=== PATIENT | female | born 1985 | race Caucasian/White ===

== ENCOUNTER 2023-11-12 12:13 | Observation (INO) | payer MEDICARE, MEDICAID ==
[2023-11-12] MEDS ORDERED: Sodium Chloride 0.9% 10 ML Syringe FLUSH PRN (12:26)
[2023-11-12 12:38] LABS: BASOPHILS PERCENT AUTO 0.2 % (0.2-1.2); EOSINOPHILS ABSOLUTE AUTO 0.2 x10^3/uL (0.0-0.5); EOSINOPHILS PERCENT AUTO 2.2 % (0.0-4.0); HEMATOCRIT 41.6 % (33.0-47.0); HEMOGLOBIN 14.1 g/dL (12.0-16.0); IMMATURE GRAN ABSOLUTE AUTO 0.07 x10^3/uL (0.00-0.07); LYMPHOCYTES ABSOLUTE AUTO 1.4 x10^3/uL (1.0-4.8); MEAN CORPUSCULAR HEMOGLOBIN 31.5 pg (26.0-32.0); MEAN CORPUSCULAR HGB CONC 33.9 g/dL (32.0-36.0); MEAN CORPUSCULAR VOLUME 92.9 fL (78.0-93.0); MONOCYTES ABSOLUTE AUTO 0.5 x10^3/uL (0.0-0.8); MONOCYTES PERCENT AUTO 4.8 % (2.0-11.0); NEUTROPHILS PERCENT AUTO 78.1 % (50.0-80.0); PLATELET COUNT,PLT 353 x10^3/uL (130-400); RED BLOOD CELL COUNT 4.48 x10^6/uL (4.00-5.50); WHITE BLOOD CELL COUNT,WBC 10.2 x10^3/uL (4.0-10.0)
[2023-11-12] MEDS: Ketorolac 15 MG/ML SDV IVPUSH ONE (12:56)
[2023-11-12] MEDS: Lactated Ringers 1,000 ML IV ONE ×2 (12:56→19:45)
[2023-11-12] MEDS: Ondansetron 4 MG/2 ML SDV IVPUSH ONE (12:59)
[2023-11-12 13:00] LABS: A/G RATIO 1.08; ALANINE AMINOTRANSFERASE,ALT 23 U/L (14-59); ALBUMIN 4.1 g/dL (3.4-5.0); ALKALINE PHOSPHATASE 86 U/L (46-116); ANION GAP 15.9 mmol/L (5-15); ASPARTATE AMNIOTRANSFERASE,AST 12 U/L (15-37); BILIRUBIN TOTAL 0.5 mg/dL (0.2-1.0); BLOOD UREA NITROGEN,BUN 11 mg/dL (7-18); C-REACTIVE PROTEIN < 0.50 mg/dL (<=0.50); CALCIUM 9.3 mg/dL (8.5-10.1); CARBON DIOXIDE,CO2 26 mmol/L (21-32); CHLORIDE,CL 106 mmol/L (98-107); CREATININE 0.8 mg/dL (0.55-1.02); ESTIMATED GFR 98 mL/min (>=60); GLUCOSE RANDOM 133 mg/dL (70-99); POTASSIUM,K 3.9 mmol/L (3.5-5.1); PROTEIN TOTAL,TP 7.9 g/dL (6.4-8.2); SODIUM,NA 144 mmol/L (136-145)
[2023-11-12] MEDS: HYDROmorphone 0.5 MG/0.5 ML Syringe IVPUSH ONE ×3 (13:02→15:18)
[2023-11-12 13:04] LABS: LACTIC ACID 1.2 mmol/L (0.4-2.0)
[2023-11-12 14:40] LABS: APPEARANCE,URINE CLOUDY (CLEAR); BILIRUBIN,URINE NEGATIVE (NEGATIVE); COLOR,URINE DARK YELLOW (YELLOW); GLUCOSE,URINE NEGATIVE (NEGATIVE); KETONES,URINE TRACE mg/dL (NEGATIVE); LEUKOCYTE ESTERASE,URINE TRACE (NEGATIVE); NITRITE,URINE NEGATIVE (NEGATIVE); OCCULT BLOOD,URINE LARGE (NEGATIVE); PROTEIN,URINE 100 mg/dL (NEGATIVE); UROBILINOGEN,URINE 0.2 EU/dL (0.2)
[2023-11-12 14:56] LABS: BACTERIA,URINE FEW /HPF (NOT SEEN); RBC,URINE 75-100 /HPF (NOT SEEN); SQUAMOUS EPITHELIAL CELLS,UR FEW /HPF (NOT SEEN)
[2023-11-12] MEDS: Iopamidol 612 MG/ML 100 ML Bottle IVPUSH ONE (16:21)
[2023-11-12] MEDS: HYDROmorphone 1 MG/ML Syringe IVPUSH ONE ×3 (16:30→20:17)
[2023-11-12] MEDS: cefTRIAXone 1 GM Vial IVPUSH ONE (16:34)
[2023-11-12] MEDS: Tamsulosin 0.4 MG Cap.ER PO ONE (18:12)
[2023-11-12] MEDS ORDERED: Sennosides 8.6 MG Tab PO PRN (18:46)
[2023-11-12] MEDS: Ketorolac 15 MG/ML SDV IVPUSH SCH (19:56)
[2023-11-12] MEDS: Simvastatin 20 MG Tab PO SCH (19:59)
[2023-11-12] MEDS: Ondansetron 4 MG Tab.DIS PO PRN (20:46)
[2023-11-12] MEDS: HYDROmorphone 1 MG/ML Syringe IVPUSH PRN (21:17)
[2023-11-12] MEDS: Metoclopramide 10 MG Tab PO PRN (21:17)
[2023-11-13] MEDS ORDERED: Sennosides/Docusate Sodium 50-8.6 MG Tab PO PRN (08:28)
[2023-11-13 09:52] LABS: BASOPHILS PERCENT AUTO 0.3 % (0.2-1.2); EOSINOPHILS ABSOLUTE AUTO 0.3 x10^3/uL (0.0-0.5); EOSINOPHILS PERCENT AUTO 4.6 % (0.0-4.0); HEMATOCRIT 38.6 % (33.0-47.0); IMMATURE GRAN ABSOLUTE AUTO 0.01 x10^3/uL (0.00-0.07); LYMPHOCYTES PERCENT AUTO 34.5 % (25.0-50.0); MEAN CORPUSCULAR HEMOGLOBIN 31.4 pg (26.0-32.0); MEAN CORPUSCULAR HGB CONC 33.7 g/dL (32.0-36.0); MEAN CORPUSCULAR VOLUME 93.2 fL (78.0-93.0); MONOCYTES ABSOLUTE AUTO 0.5 x10^3/uL (0.0-0.8); MONOCYTES PERCENT AUTO 7.7 % (2.0-11.0); NEUTROPHILS ABSOLUTE AUTO 3.1 x10^3/uL (1.8-7.7); NEUTROPHILS PERCENT AUTO 52.7 % (50.0-80.0); PLATELET COUNT,PLT 275 x10^3/uL (130-400); RED BLOOD CELL COUNT 4.14 x10^6/uL (4.00-5.50); WHITE BLOOD CELL COUNT,WBC 5.9 x10^3/uL (4.0-10.0)
[2023-11-13 10:08] LABS: A/G RATIO 0.95; ALANINE AMINOTRANSFERASE,ALT 23 U/L (14-59); ALBUMIN 3.5 g/dL (3.4-5.0); ALKALINE PHOSPHATASE 75 U/L (46-116); ASPARTATE AMNIOTRANSFERASE,AST 14 U/L (15-37); BILIRUBIN TOTAL 0.7 mg/dL (0.2-1.0); BLOOD UREA NITROGEN,BUN 7 mg/dL (7-18); CALCIUM 9.1 mg/dL (8.5-10.1); CARBON DIOXIDE,CO2 27 mmol/L (21-32); CHLORIDE,CL 107 mmol/L (98-107); CREATININE 0.8 mg/dL (0.55-1.02); EST CRCL DRUG DOSING (CG) 95.45 mL/min; GLUCOSE RANDOM 91 mg/dL (70-99); POTASSIUM,K 3.4 mmol/L (3.5-5.1); PROTEIN TOTAL,TP 7.2 g/dL (6.4-8.2); SODIUM,NA 144 mmol/L (136-145)
[2023-11-13 10:11] LABS: ANION GAP 13.4 mmol/L (5-15); C-REACTIVE PROTEIN < 0.50 mg/dL (<=0.50); ESTIMATED GFR 98 mL/min (>=60); LACTIC ACID 0.7 mmol/L (0.4-2.0)
[2023-11-13] MEDS: Ferrous Sulfate 325 MG Tab PO SCH (10:32)
[2023-11-13] MEDS: Lactobacillus Rhamnosus GG (Probiotic) Cap PO SCH (10:32)
[2023-11-13] MEDS: Aspirin 325 MG Tab.EC PO SCH (10:32)
[2023-11-13] MEDS: Ascorbic Acid 500 MG Tab PO SCH (10:33)
[2023-11-13] MEDS ORDERED: cefTRIAXone 1 GM Vial IVPUSH SCH (16:00)
[2023-11-13] MEDS ORDERED: Tamsulosin 0.4 MG Cap.ER PO SCH (18:00)
[2023-11-13] MEDS ORDERED: PARoxetine 20 MG Tab PO SCH (21:00)
== END 2023-11-13 12:25 | disposition short-term general hospital (02) ==
LOC: VM.ED 12:13 → VM.MS 18:01
PROVIDERS: ADMIT Physician Assistant; ATTEND Physician Assistant
DX: N13.2 Hydronephrosis with renal and ureteral calculous obstruction (principal); N23 Unspecified renal colic
CPT/HCPCS: 36415; 74177; 80053; 81001; 81025; 83605; 85025; 86140; 87086; 96361; 96374; 96375; 96376; 99223; 99238; 99285-25; A9270-GY; G0378; J0696; J1170; J1885; J2405; J7120; Q9967